=== PATIENT | female | born 2000 | race African-American/Black ===

== ENCOUNTER 2021-02-07 08:02 | Emergency (ER) | payer SELFPAY ==
[~2021-02-07] VITALS: Ht 160 cm; Wt 52.0 kg
[2021-02-07] MEDS ORDERED: IBUPROFEN 600MG TABLET PO ONE (08:30)
[2021-02-07] MEDS ORDERED: IBUP-2028 MT (10:45)
[2021-02-07 11:02] VITALS: BP 130/78
== END 2021-02-07 11:05 | disposition home or self-care (01) ==
LOC: ER 08:48
DX: S02.31XA Fracture of orbital floor, right side, initial encounter for closed fracture (principal); S02.40CA Maxillary fracture, right side, initial encounter for closed fracture; Y04.0XXA Assault by unarmed brawl or fight, initial encounter; Y93.89 Activity, other specified; Y92.89 Other specified places as the place of occurrence of the external cause
CPT/HCPCS: 70486; 81025; 99284